=== PATIENT | female | born 1955 ===

== ENCOUNTER 2017-11-27 14:03 | Emergency (ER) | payer BC, MEDICAID ==
[2017-11-27 14:36] VITALS: BP 136/89
--- NOTE | 2017-11-27 15:11 | UC ---
Dental HPI - HPI Summary HPI Summary: This pt is a 62 y/o female presenting to [facility] c/o dental pain. Pt speaks [place] and her daughter is translating for her. Pt states she has dental pain on tooth #5 and #6 for the past few days. She states her pain is intermittent and at times it is severe, rating it 10/10 in severity. Currently she rates her pain 2/10 in severity. She additionally notes mild swelling on the left side of gums. Denies swelling of the tongue, difficulty swallowing, fever. - History of Current Complaint Chief Complaint: UCDentalProblem Stated Complaint: PAIN ON LEFT SIDE OF FACE Time Seen by Provider: 11/27/17 15:09 Hx Obtained From: Patient, Family/Caption Writer - Daughter as caramel maker Onset/Duration: Lasting Days, Still Present Severity: Mild Pain Intensity: 2 Pain Scale Used: 0-10 Numeric Aggravating Factor(s): Nothing Alleviating Factor(s): Nothing Related History: Swelling - mild on the left side - Allergies/Home Medications Allergies/Adverse Reactions: Allergies Allergy/AdvReac Type Severity Reaction Status Date / Time No Known Allergies Allergy Verified 11/27/17 14:25 Home Medications: Home Medications Acetaminophen [Acetaminophen Extra Strength] 500 mg PO ONCE 11/27/17 [History Confirmed 11/27/17] PMH/Surg Hx/FS Hx/Imm Hx Other Endocrine History: DENIES: diabetes Other Cardiovascular History: DENIES: HTN - Surgical History Surgical History: None - Family History Known Family History: Negative: Cardiac Disease, Hypertension - Social History Alcohol Use: None Substance Use Type: None Smoking Status (MU): Never Smoked Tobacco Review of Systems Constitutional: Negative Skin: Negative Eyes: Negative ENT: Dental Pain, Other - POSITIVE: mild swelling on left side of gums. NEGATIVE : tongue swelling, trouble swallowing. Respiratory: Negative Cardiovascular: Negative Gastrointestinal: Negative Genitourinary: Negative Motor: Negative Neurovascular: Negative Musculoskeletal: Negative Neurological: Negative Psychological: Negative All Other Systems Reviewed And Are Negative: Yes Physical Exam - Summary Physical Exam Summary: VITAL SIGNS: Reviewed. GENERAL: Patient is a well-developed and nourished female who is lying comfortable in the stretcher. Patient is not in any acute respiratory distress. HEAD AND FACE: Normocephalic EYES: PERRLA, EOMI x 2. EARS: Hearing grossly intact. MOUTH: Oropharynx within normal limits. Mild swelling of gum on the left side. NECK: Supple, trachea is midline, no adenopathy, no JVD, no carotid bruit. CHEST: Symmetric, no tenderness at palpation LUNGS: Clear to auscultation bilaterally. No wheezing or crackles. CVS: Regular rate and rhythm, S1 and S2 present, no murmurs or gallops appreciated. ABDOMEN: Soft, non-tender. Bowel sounds are normal. No abdominal abnormal pulsations. EXTREMITIES: Full ROM in all major joints, no edema, no cyanosis or clubbing. NEURO: Alert and oriented x 3. No acute neurological deficits. Speech is normal and follows commands. SKIN: Dry and warm Triage Information Reviewed: Yes Vital Signs: Initial Vital Signs Temp 97.7 F 11/27/17 14:26 Pulse 80 11/27/17 14:26 Resp 18 11/27/17 14:26 BP 136/89 11/27/17 14:26 Pulse Ox 96 11/27/17 14:26 Vital Signs Reviewed: Yes Dental Complaint Course/Dx - Course Course Of Treatment: Pt is a 62 y/o female presenting to [facility] c/o dental pain. Pt speaks [place] and her daughter is translating for her. Pt states she has dental pain on tooth #5 and #6 for the past few days. She states her pain is intermittent and at times it is severe, rating it 10/10 in severity. Currently she rates her pain 2/10 in severity. Denies swelling of the tongue, difficulty swallowing, fever. On exam pt has mild swelling of gum on the left side and pain on tooth #5 and tooth #6. Pt will be discharged home with a prescription for Amoxicilin and Ibuprofen. Pt was instructed to return to the urgent care or go to ER immediately if any of the symptoms return or worsens. Plan of care was discussed with the patient and pt understands and agrees. All questions were answered to patient satisfaction. There were no further complaints or concerns. Pt will be discharged to home with follow up from her dentist. Pt is hemodynamically stable, alert and oriented x3. The patient was found to have increased blood pressure in UC. The patient will follow up with PCP for better control of BP. - Differential Dx/Diagnosis Provider Diagnoses: 1. Dental pain. 2. Dental infection Discharge - Sign-Out/Discharge Documenting (check all that apply): Patient Departure - Discharge - Discharge Plan Condition: Stable Disposition: HOME Prescriptions: Amoxicillin PO (*) [Amoxicillin 875 MG (*)] 875 mg PO BID #20 tab Ibuprofen TAB* [Motrin TAB* 800 MG] 800 mg PO ONCE PRN #30 tab PRN Reason: Pain Patient Education Materials: Toothache (ED) Referrals: Neelam Quiñones MD [Primary Care Provider] - Additional Instructions: FOLLOW UP WITH YOUR PRIMARY CARE PROVIDER WITHIN ONE WEEK FOR HIGH BLOOD PRESSURE NOTED TODAY. RETURN TO URGENT CARE OR THE ED FOR ANY WORSENING OR NEW SYMPTOMS. Take medications as instructed and adhere to plan Take Acetaminophen or ibuprofen for pain or fever Increase your fluid intake Return to the or go to the emergency department if symptoms worsen Follow-up with primary care physician in next 2-3 days
== END 2017-11-27 15:29 | disposition home or self-care (01) ==
LOC: UCEAST 14:03
DX: K04.7 Periapical abscess without sinus (principal)
CPT/HCPCS: 99202; G0463